=== PATIENT | male | born 1960 | race African-American/Black ===

== ENCOUNTER 2019-02-15 21:37 | Emergency (ER) | payer OTHER ==
[~2019-02-15] VITALS: Ht 190.5 cm; Wt 97.0 kg
[2019-02-15] MEDS ORDERED: ACETAMINOPHEN 500MG TABLET PO ONE (22:45)
[2019-02-15] MEDS ORDERED: KETOROLAC 60MG/2ML VIAL IM ONE (22:45)
[2019-02-16 00:51] VITALS: BP 180/91
== END 2019-02-16 00:51 | disposition home or self-care (01) ==
LOC: ER 21:37
DX: M54.5 Low back pain (principal); E11.9 Type 2 diabetes mellitus without complications; F12.10 Cannabis abuse, uncomplicated; Z87.828 Personal history of other (healed) physical injury and trauma; W01.0XXA Fall on same level from slipping, tripping and stumbling without subsequent striking against object, initial encounter; Y93.89 Activity, other specified; Y92.89 Other specified places as the place of occurrence of the external cause
CPT/HCPCS: 72100; 72220; 96372; 99283; J1885

== ENCOUNTER 2021-01-14 19:01 | Inpatient (IN) | payer MEDICAID, OTHER ==
[~2021-01-14] VITALS: Ht 190.5 cm; Wt 107.0 kg
[2021-01-14 19:56] LABS: CHLORIDE 111 mEq/L (98-107)
[2021-01-14 19:58] LABS: PROTHROMBIN TIME 10.7 sec (9.6-11.0)
[2021-01-14 19:59] LABS: ETHANOL BLOOD < 10 mg/dL
[2021-01-14 20:00] LABS: BASOPHILS % 0.3 % (0.0-2.0); EOSINOPHILS % 3.9 % (0.0-5.0); HEMATOCRIT. 38.7 % (42.0-52.0); HEMOGLOBIN. 12.8 g/dL (14.0-18.0); LYMPHOCYTES % 10.8 % (20.0-50.0); MEAN CORPUSCULAR HEMOGLOBIN 31.6 pg (28.0-32.0); MEAN CORPUSCULAR VOLUME 95.1 fL (80.0-94.0); MEAN PLATELET VOLUME 9.2 fl (7.4-10.4); MONOCYTES % 5.8 % (2.0-8.0); NEUTROPHILS % 79.2 % (40.0-76.0); PLATELET 183 x1000/uL (130-400); RED BLOOD CELL COUNT 4.06 mill/uL (4.7-6.1); RED CELL DISTRIBUTION WIDTH 13.3 % (11.6-14.6)
[2021-01-14 20:02] LABS: LDL CHOLESTEROL 56 mg/dL (5-100)
[2021-01-14 20:04] LABS: CREATINE KINASE 203 IU/L (39-308)
[2021-01-14] MEDS ORDERED: ASPIRIN 325MG EC TABLET PO ONE (20:30)
[2021-01-14] MEDS ORDERED: MORPHINE SULFATE 4 MG/ML CPJ (NOT FOR IM USE) IV ONE (20:30)
[2021-01-14] MEDS ORDERED: APIXABAN 5 MG TABLET PO SCH (22:00)
[2021-01-14] MEDS ORDERED: IOHEXOL-350 100 ML BOTTLE ONE (22:08)
[2021-01-15] MEDS ORDERED: TAMS-11 MT (00:04)
[2021-01-15] MEDS ORDERED: GABA-529 MT (00:04)
[2021-01-15] MEDS ORDERED: ASPI-1497 PO (00:04)
[2021-01-15] MEDS ORDERED: CLOP-31 MT (00:04)
[2021-01-15 00:33] VITALS: BP 154/75
[2021-01-15 04:00] VITALS: BP 149/80
[2021-01-15] MEDS ORDERED: DEXTROSE 50% WATER 50ML SYRINGE IV PRN ×2 (04:15→11:15)
[2021-01-15] MEDS: MORPHINE SULFATE 2 MG/ML CPJ (NOT FOR IM USE) IV PRN (04:39)
[2021-01-15] MEDS: BLOOD SUGAR DIAGNOSTIC STRIP TEST SCH ×4 (06:17→21:30)
[2021-01-15] MEDS: INSULIN LISPRO 100 UNITS/ML SUBCUT SCH ×4 (06:17→22:16)
[2021-01-15] MEDS ORDERED: LORAZEPAM 2MG/ML CPJ IV NR (07:00)
[2021-01-15 08:00] VITALS: BP 105/71
[2021-01-15] MEDS ORDERED: AMLODIPINE 10MG TABLET PO SCH (09:00)
[2021-01-15] MEDS: TAMSULOSIN HCL 0.4MG SR CAPSULE PO SCH (09:09)
[2021-01-15] MEDS: ASPIRIN 81MG TABLET PO SCH (09:09)
[2021-01-15] MEDS: CLOPIDOGREL 75MG TABLET PO SCH (09:09)
[2021-01-15] MEDS: GABAPENTIN 300MG CAPSULE PO SCH ×3 (09:09→21:58)
[2021-01-15] MEDS: INSULIN GLARGINE UD 100 UNITS/ML SYR SUBCUT SCH ×2 (10:03→22:02)
[2021-01-15] MEDS ORDERED: MAGNESIUM/ALUMINUM HYDROXIDE/SIMETHICONE 30ML UDC PO PRN (11:15)
[2021-01-15] MEDS ORDERED: ACETAMINOPHEN 325MG TABLET PO PRN (11:15)
[2021-01-15] MEDS ORDERED: DOCUSATE SODIUM 100MG CAPSULE PO PRN (11:15)
[2021-01-15] MEDS ORDERED: ONDANSETRON HCL 4MG/2ML INJ IV PRN (11:15)
[2021-01-15] MEDS ORDERED: IPRATROPIUM/ALBUTEROL 0.5-3(2.5)MG/3ML NEB HHN PRN (11:15)
[2021-01-15] MEDS ORDERED: BLOOD SUGAR DIAGNOSTIC STRIP TEST SCH (11:45)
[2021-01-15 11:55] VITALS: BP 135/79
[2021-01-15 12:43] LABS: HEMATOCRIT 37.1 % (42.0-52.0); HEMOGLOBIN 12.1 g/dL (14.0-18.0); MEAN CORPUSCULAR HEMOGLOBIN 31.2 pg (28.0-32.0); MEAN CORPUSCULAR VOLUME 95.7 fL (80.0-94.0); PLATELET 153 x1000/uL (130-400); RED BLOOD CELL COUNT 3.88 mill/uL (4.7-6.1); RED CELL DISTRIBUTION WIDTH 13.5 % (11.6-14.6)
[2021-01-15 12:54] LABS: CHLORIDE 114 mEq/L (98-107)
[2021-01-15 13:02] LABS: TOTAL IRON BINDING CAPACITY 258 ug/dL (250-450)
[2021-01-15] MEDS: SODIUM CHLORIDE 0.9% 1,000 ML IV SCH (13:09)
[2021-01-15 16:00] VITALS: BP 158/91
[2021-01-15] MEDS: ENOXAPARIN 100MG/ML SYR SUBCUT SCH (17:53)
[2021-01-15 20:00] VITALS: BP 142/87
[2021-01-15] MEDS: ATORVASTATIN CALCIUM 10MG TABLET PO SCH (21:58)
[2021-01-15] MEDS: METOPROLOL TARTRATE 25MG TABLET PO SCH (21:59)
[2021-01-15 22:55] LABS: CLARITY URINE CLOUDY (CLEAR); COLOR URINE RED (YELLOW); KETONES URINE NEGATIVE (NEGATIVE); LEUKOCYTE ESTERASE URINE 1+ (NEGATIVE); NITRITE URINE NEGATIVE (NEGATIVE); OCCULT BLOOD URINE 3+ (NEGATIVE); PH URINE 5.5 (4.5-8.0); PROTEIN URINE 3+ (NEGATIVE); SPECIFIC GRAVITY URINE 1.023 (1.005-1.030); UROBILINOGEN URINE 0.2 E.U./dL (0.2-1.0)
[2021-01-15 23:26] LABS: *BARBITURATES SCREEN URINE NEGATIVE (NEGATIVE)
[2021-01-15 23:27] LABS: *AMPHETAMINES SCREEN URINE NEGATIVE (NEGATIVE); *BENZODIAZEPINES SCREEN URINE NEGATIVE (NEGATIVE); *COCAINE SCREEN URINE NEGATIVE (NEGATIVE); CANNABINOID URINE SCREEN NEGATIVE (NEGATIVE); METHADONE URINE SCREEN NEGATIVE (NEGATIVE); OPIATES URINE SCREEN PRESUMTIVE POSITIVE (NEGATIVE); PHENCYCLIDINE URINE SCREEN NEGATIVE (NEGATIVE)
[2021-01-16] VITALS: BP 122/81
[2021-01-16 04:00] VITALS: BP 161/77
[2021-01-16 04:58] LABS: PHOSPHORUS 4.2 mg/dL (2.5-4.9)
[2021-01-16 05:01] LABS: CREATINE KINASE MB FRACTION 9.6 ng/mL (0.5-3.6)
[2021-01-16] MEDS: CLONIDINE 0.1MG TABLET PO PRN (05:11)
[2021-01-16] MEDS: ENOXAPARIN 100MG/ML SYR SUBCUT SCH (05:11)
[2021-01-16] MEDS: SODIUM CHLORIDE 0.9% 1,000 ML IV SCH ×2 (05:11→17:32)
[2021-01-16] MEDS: GABAPENTIN 300MG CAPSULE PO SCH ×3 (05:11→21:53)
[2021-01-16] MEDS: BLOOD SUGAR DIAGNOSTIC STRIP TEST SCH ×4 (05:56→21:54)
[2021-01-16] MEDS: MORPHINE SULFATE 2 MG/ML CPJ (NOT FOR IM USE) IV PRN ×2 (06:00→11:22)
[2021-01-16 06:13] LABS: BASOPHILS % 0.4 % (0.0-2.0); EOSINOPHILS % 5.1 % (0.0-5.0); HEMATOCRIT. 39.3 % (42.0-52.0); HEMOGLOBIN. 12.7 g/dL (14.0-18.0); LYMPHOCYTES % 17.4 % (20.0-50.0); MEAN CORPUSCULAR HEMOGLOBIN 30.9 pg (28.0-32.0); MEAN CORPUSCULAR VOLUME 95.4 fL (80.0-94.0); MEAN PLATELET VOLUME 9.1 fl (7.4-10.4); MONOCYTES % 5.4 % (2.0-8.0); NEUTROPHILS % 71.7 % (40.0-76.0); PLATELET 158 x1000/uL (130-400); RED BLOOD CELL COUNT 4.12 mill/uL (4.7-6.1); RED CELL DISTRIBUTION WIDTH 13.5 % (11.6-14.6)
[2021-01-16] MEDS: INSULIN LISPRO 100 UNITS/ML SUBCUT SCH ×4 (06:33→23:24)
[2021-01-16 08:00] VITALS: BP 131/80
[2021-01-16] MEDS ORDERED: AMLODIPINE 5MG TABLET PO SCH (09:00)
[2021-01-16] MEDS: METOPROLOL TARTRATE 25MG TABLET PO SCH (09:01)
[2021-01-16] MEDS: HYDROCODONE/ACETAMINOPHEN 5/325MG TABLET PO PRN ×2 (09:01→21:53)
[2021-01-16] MEDS: PANTOPRAZOLE SODIUM 40 MG/VIAL IV SCH (09:01)
[2021-01-16] MEDS: ASPIRIN 81MG TABLET PO SCH (09:02)
[2021-01-16] MEDS: CLOPIDOGREL 75MG TABLET PO SCH (09:02)
[2021-01-16] MEDS: TAMSULOSIN HCL 0.4MG SR CAPSULE PO SCH (09:02)
[2021-01-16] MEDS: INSULIN GLARGINE UD 100 UNITS/ML SYR SUBCUT SCH ×2 (10:34→23:23)
[2021-01-16 12:00] VITALS: BP 130/65
[2021-01-16 16:00] VITALS: BP 145/74
[2021-01-16] MEDS ORDERED: CEFTRIAXONE 1 G PREMIX 50 ML IV SCH (17:45)
[2021-01-16 20:00] VITALS: BP 131/79
[2021-01-16] MEDS ORDERED: CEFTRIAXONE 1,000 MG in DEXTROSE 5% WATER 50 ML IV SCH (20:00)
[2021-01-16] MEDS: AMLODIPINE 2.5MG TABLET PO SCH (21:00)
[2021-01-16] MEDS: ATORVASTATIN CALCIUM 10MG TABLET PO SCH (21:53)
[2021-01-16] MEDS: CARVEDILOL 6.25 MG TABLET PO SCH (21:54)
[2021-01-16] MEDS: CEFTRIAXONE 1,000 MG in DEXTROSE 5% WATER 50 ML IV SCH (23:25)
[2021-01-17] VITALS: BP 132/75
[2021-01-17] MEDS: SODIUM CHLORIDE 0.9% 1,000 ML IV SCH ×2 (03:30→16:50)
[2021-01-17 04:00] VITALS: BP 154/71
[2021-01-17 06:35] LABS: BASOPHILS % 0.4 % (0.0-2.0); EOSINOPHILS % 5.1 % (0.0-5.0); HEMATOCRIT. 36.6 % (42.0-52.0); HEMOGLOBIN. 12.1 g/dL (14.0-18.0); LYMPHOCYTES % 14.4 % (20.0-50.0); MEAN CORPUSCULAR VOLUME 96.4 fL (80.0-94.0); MEAN PLATELET VOLUME 8.8 fl (7.4-10.4); MONOCYTES % 5.8 % (2.0-8.0); NEUTROPHILS % 74.3 % (40.0-76.0); PLATELET 141 x1000/uL (130-400); RED BLOOD CELL COUNT 3.79 mill/uL (4.7-6.1); RED CELL DISTRIBUTION WIDTH 13.7 % (11.6-14.6)
[2021-01-17] MEDS: INSULIN LISPRO 100 UNITS/ML SUBCUT SCH ×4 (07:15→21:33)
[2021-01-17] MEDS: BLOOD SUGAR DIAGNOSTIC STRIP TEST SCH ×4 (07:38→21:00)
[2021-01-17] MEDS: GABAPENTIN 300MG CAPSULE PO SCH ×3 (07:38→21:45)
[2021-01-17 08:00] VITALS: BP 113/75
[2021-01-17] MEDS: ASPIRIN 81MG TABLET PO SCH (08:36)
[2021-01-17] MEDS: TAMSULOSIN HCL 0.4MG SR CAPSULE PO SCH (08:36)
[2021-01-17] MEDS: AMLODIPINE 2.5MG TABLET PO SCH ×2 (08:36→21:31)
[2021-01-17] MEDS: CARVEDILOL 6.25 MG TABLET PO SCH ×2 (08:36→21:32)
[2021-01-17] MEDS: PANTOPRAZOLE SODIUM 40 MG/VIAL IV SCH (08:36)
[2021-01-17] MEDS: CLOPIDOGREL 75MG TABLET PO SCH (08:36)
[2021-01-17] MEDS ORDERED: ENOXAPARIN 100MG/ML SYR SUBCUT SCH (09:00)
[2021-01-17] MEDS: INSULIN GLARGINE UD 100 UNITS/ML SYR SUBCUT SCH ×2 (10:28→21:32)
[2021-01-17] MEDS: HYDROCODONE/ACETAMINOPHEN 5/325MG TABLET PO PRN ×2 (11:24→17:31)
[2021-01-17 12:00] VITALS: BP 152/81
[2021-01-17 16:00] VITALS: BP 147/57
[2021-01-17] MEDS: APIXABAN 5 MG TABLET PO SCH (17:28)
[2021-01-17 20:00] VITALS: BP 139/73
[2021-01-17] MEDS: ATORVASTATIN CALCIUM 10MG TABLET PO SCH (21:30)
[2021-01-17] MEDS: CEFTRIAXONE 1,000 MG in DEXTROSE 5% WATER 50 ML IV SCH (21:33)
[2021-01-18] VITALS: BP 148/70
[2021-01-18] MEDS: MORPHINE SULFATE 2 MG/ML CPJ (NOT FOR IM USE) IV PRN (03:41)
[2021-01-18 04:00] VITALS: BP 177/89
[2021-01-18] MEDS: BLOOD SUGAR DIAGNOSTIC STRIP TEST SCH ×4 (05:54→20:44)
[2021-01-18] MEDS: SODIUM CHLORIDE 0.9% 1,000 ML IV SCH ×2 (06:10→22:12)
[2021-01-18] MEDS: GABAPENTIN 300MG CAPSULE PO SCH ×3 (06:15→22:10)
[2021-01-18 06:46] LABS: BASOPHILS % 0.7 % (0.0-2.0); EOSINOPHILS % 6.3 % (0.0-5.0); HEMATOCRIT. 36.5 % (42.0-52.0); HEMOGLOBIN. 12.4 g/dL (14.0-18.0); LYMPHOCYTES % 15.4 % (20.0-50.0); MEAN CORPUSCULAR HEMOGLOBIN 32.2 pg (28.0-32.0); MEAN CORPUSCULAR VOLUME 94.8 fL (80.0-94.0); MEAN PLATELET VOLUME 8.8 fl (7.4-10.4); MONOCYTES % 6.1 % (2.0-8.0); NEUTROPHILS % 71.5 % (40.0-76.0); PLATELET 145 x1000/uL (130-400); RED BLOOD CELL COUNT 3.85 mill/uL (4.7-6.1); RED CELL DISTRIBUTION WIDTH 13.2 % (11.6-14.6)
[2021-01-18] MEDS: INSULIN LISPRO 100 UNITS/ML SUBCUT SCH ×4 (07:15→21:00)
[2021-01-18 08:00] VITALS: BP 175/89
[2021-01-18] MEDS: ASPIRIN 81MG TABLET PO SCH (08:46)
[2021-01-18] MEDS: CLOPIDOGREL 75MG TABLET PO SCH (08:47)
[2021-01-18] MEDS: TAMSULOSIN HCL 0.4MG SR CAPSULE PO SCH (08:47)
[2021-01-18] MEDS: APIXABAN 5 MG TABLET PO SCH ×2 (08:47→17:44)
[2021-01-18] MEDS: CARVEDILOL 6.25 MG TABLET PO SCH ×2 (08:47→20:49)
[2021-01-18] MEDS: AMLODIPINE 2.5MG TABLET PO SCH ×2 (08:47→20:55)
[2021-01-18] MEDS: FAMOTIDINE 20MG/2ML VIAL IV SCH ×2 (09:02→20:49)
[2021-01-18] MEDS: INSULIN GLARGINE UD 100 UNITS/ML SYR SUBCUT SCH ×2 (10:29→22:11)
[2021-01-18 12:00] VITALS: BP 151/85
[2021-01-18 16:00] VITALS: BP 157/86
[2021-01-18] MEDS: HYDROCODONE/ACETAMINOPHEN 5/325MG TABLET PO PRN (18:31)
[2021-01-18 20:00] VITALS: BP 160/85
[2021-01-18] MEDS: ATORVASTATIN CALCIUM 10MG TABLET PO SCH (20:48)
[2021-01-18] MEDS: CEFTRIAXONE 1,000 MG in DEXTROSE 5% WATER 50 ML IV SCH (22:10)
[2021-01-19] VITALS: BP 150/73
[2021-01-19 04:00] VITALS: BP 170/91
[2021-01-19] MEDS: CLONIDINE 0.1MG TABLET PO PRN (04:16)
[2021-01-19] MEDS: SODIUM CHLORIDE 0.9% 1,000 ML IV SCH (05:59)
[2021-01-19] MEDS: GABAPENTIN 300MG CAPSULE PO SCH ×2 (06:10→14:26)
[2021-01-19 06:18] LABS: BASOPHILS % 0.7 % (0.0-2.0); EOSINOPHILS % 8.1 % (0.0-5.0); HEMATOCRIT. 36.3 % (42.0-52.0); HEMOGLOBIN. 12.4 g/dL (14.0-18.0); LYMPHOCYTES % 18.1 % (20.0-50.0); MEAN CORPUSCULAR HEMOGLOBIN 32.5 pg (28.0-32.0); MEAN CORPUSCULAR VOLUME 95.2 fL (80.0-94.0); MONOCYTES % 6.1 % (2.0-8.0); PLATELET 149 x1000/uL (130-400); RED BLOOD CELL COUNT 3.82 mill/uL (4.7-6.1); RED CELL DISTRIBUTION WIDTH 13.5 % (11.6-14.6)
[2021-01-19] MEDS: BLOOD SUGAR DIAGNOSTIC STRIP TEST SCH ×2 (06:19→11:45)
[2021-01-19] MEDS: INSULIN LISPRO 100 UNITS/ML SUBCUT SCH ×2 (07:15→12:15)
[2021-01-19 08:00] VITALS: BP 151/92
[2021-01-19] MEDS: AMLODIPINE 2.5MG TABLET PO SCH (08:15)
[2021-01-19] MEDS: CLOPIDOGREL 75MG TABLET PO SCH (08:16)
[2021-01-19] MEDS: TAMSULOSIN HCL 0.4MG SR CAPSULE PO SCH (08:16)
[2021-01-19] MEDS: CARVEDILOL 6.25 MG TABLET PO SCH (08:16)
[2021-01-19] MEDS: ASPIRIN 81MG TABLET PO SCH (08:16)
[2021-01-19] MEDS: APIXABAN 5 MG TABLET PO SCH (08:16)
[2021-01-19] MEDS: HYDROCODONE/ACETAMINOPHEN 5/325MG TABLET PO PRN (08:25)
[2021-01-19] MEDS: FAMOTIDINE 20MG/2ML VIAL IV SCH (09:18)
[2021-01-19] MEDS: INSULIN GLARGINE UD 100 UNITS/ML SYR SUBCUT SCH (10:37)
[2021-01-19 12:00] VITALS: BP 155/89
[2021-01-19] MEDS ORDERED: COR12 PO (12:05)
[2021-01-19] MEDS ORDERED: LANTUSUD SUBCUT (12:05)
[2021-01-19] MEDS ORDERED: ASPI-1497 PO (12:05)
[2021-01-19] MEDS ORDERED: INSLIS SUBCUT (12:05)
[2021-01-19] MEDS ORDERED: AMLO5TAB88 PO (12:05)
[2021-01-19] MEDS ORDERED: TAMS-11 MT (12:05)
[2021-01-19] MEDS ORDERED: ATOR10TA PO (12:05)
[2021-01-19] MEDS ORDERED: CLOP-31 MT (12:05)
[2021-01-19] MEDS ORDERED: APIX5TAB PO (12:05)
[2021-01-19] MEDS ORDERED: ASPI-1160 PO (12:05)
[2021-01-19] MEDS ORDERED: CARVEDILOL 12.5MG TABLET PO SCH (21:00)
[2021-01-19] MEDS ORDERED: AMLODIPINE 5MG TABLET PO SCH (21:00)
[2021-01-19] MEDS ORDERED: FAMOTIDINE 20MG TABLET PO SCH (21:00)
== END 2021-01-19 15:40 | disposition home health service (06) | DRG 45 ==
LOC: ER 19:01 → 5WST 21:37 → EDBEDREQ 21:41 → EDBEDREQSVC 21:41 → EDBEDREQTM 21:41 → ENRESERV 23:00
PROVIDERS: ADMIT Internal Medicine; ATTEND Internal Medicine
PROC: 4A10X4Z Monitoring of Central Nervous Electrical Activity, External Approach (ICD-10-PCS; principal; 2021-01-14)
DX: I63.9 Cerebral infarction, unspecified (principal); I26.99 Other pulmonary embolism without acute cor pulmonale; I50.33 Acute on chronic diastolic (congestive) heart failure; E44.0 Moderate protein-calorie malnutrition; N17.9 Acute kidney failure, unspecified; I82.412 Acute embolism and thrombosis of left femoral vein; I48.91 Unspecified atrial fibrillation; R53.1 Weakness; I63.81 Other cerebral infarction due to occlusion or stenosis of small artery; I11.0 Hypertensive heart disease with heart failure; N40.0 Benign prostatic hyperplasia without lower urinary tract symptoms; E11.65 Type 2 diabetes mellitus with hyperglycemia; E78.5 Hyperlipidemia, unspecified; I25.10 Atherosclerotic heart disease of native coronary artery without angina pectoris; B96.1 Klebsiella pneumoniae [K. pneumoniae] as the cause of diseases classified elsewhere; I42.9 Cardiomyopathy, unspecified; M54.2 Cervicalgia; I50.9 Heart failure, unspecified; R31.9 Hematuria, unspecified; N39.0 Urinary tract infection, site not specified; Z79.02 Long term (current) use of antithrombotics/antiplatelets; Z79.82 Long term (current) use of aspirin; Z82.49 Family history of ischemic heart disease and other diseases of the circulatory system; Z83.3 Family history of diabetes mellitus; Z86.73 Personal history of transient ischemic attack (TIA), and cerebral infarction without residual deficits; Z95.5 Presence of coronary angioplasty implant and graft; Z79.899 Other long term (current) drug therapy
CPT/HCPCS: 36415; 70496; 70498; 70551; 71045; 76770; 80048; 80053; 80061; 80076; 80305; 80320; 81003; 82550; 82553; 82962; 83036; 83540; 83550; 83605; 83721; 83735; 84100; 84145; 84443; 84484; 85025; 85027; 87077; 87186; 93005; 93306; 93880; 93970; 95816; 97116; 97162; 97166; 99291; C9113; J0696; J1650; J1815; J2060; J2270; J3490; J7030; J7060; Q9967; G0480

== ENCOUNTER 2021-11-01 18:44 | Emergency (ER) | payer MEDICAID, OTHER ==
[~2021-11-01] VITALS: Ht 190.5 cm; Wt 113.0 kg
[~2021-11-01 18:44] MED LIST: AMLO5TAB88 PO; APIX5TAB PO; ASPI-1160 PO; ASPI-1497 PO; ATOR10TA PO; CLOP-31 MT; COR12 PO; GABA-529 MT; INSLIS SUBCUT; LANTUSUD SUBCUT; TAMS-11 MT
[2021-11-01] MEDS ORDERED: THROMBIN (BOVINE) 5000 UNITS/VIAL TOP ONE (19:15)
[2021-11-01] MEDS ORDERED: TRANEXAMIC ACID 1,000 MG/10 ML TP ONE (19:45)
[2021-11-01 20:06] LABS: HEMATOCRIT 32.2 % (42.0-52.0); HEMOGLOBIN 10.5 g/dL (14.0-18.0); MEAN CORPUSCULAR VOLUME 95.1 fL (80.0-94.0); PLATELET 209 x1000/uL (130-400); RED BLOOD CELL COUNT 3.38 mill/uL (4.7-6.1); RED CELL DISTRIBUTION WIDTH 13.4 % (11.6-14.6)
[2021-11-01 20:27] VITALS: BP 129/62
[2021-11-01] MEDS ORDERED: BACITRACIN ZINC OINT UDPKT TOP ONE (22:30)
[2021-11-01] MEDS ORDERED: LIDOCAINE HCL/EPINEPHRINE 1%-EPI 1:100,000 20 ML VIAL INFIL ONE (22:30)
== END 2021-11-01 22:34 | disposition home or self-care (01) ==
LOC: ER 18:44
DX: L76.21 Postprocedural hemorrhage of skin and subcutaneous tissue following a dermatologic procedure (principal); Z86.718 Personal history of other venous thrombosis and embolism; Z79.01 Long term (current) use of anticoagulants; I10 Essential (primary) hypertension; I11.9 Hypertensive heart disease without heart failure; E11.9 Type 2 diabetes mellitus without complications; Z86.73 Personal history of transient ischemic attack (TIA), and cerebral infarction without residual deficits; I25.10 Atherosclerotic heart disease of native coronary artery without angina pectoris; Z98.61 Coronary angioplasty status
CPT/HCPCS: 12002; 36415; 85027; 99283; J3490; Z7610

== ENCOUNTER 2022-07-24 10:45 | Inpatient (IN) | payer MEDICAID, OTHER ==
[~2022-07-24] VITALS: Ht 190.5 cm; Wt 104.3 kg
[~2022-07-24 10:45] MED LIST changes: -AMLO5TAB88 PO; -ASPI-1497 PO; -ATOR10TA PO; -CLOP-31 MT; -COR12 PO; +COR6 PO; +GABA-290 MT; -GABA-529 MT; +HYDR-4001 MT; +HYDR-4135 PO; -INSLIS SUBCUT; +ISOS1TAB2 MT; -LANTUSUD SUBCUT; +LIP40 PO; +TOPUD PO
[2022-07-24] MEDS ORDERED: MORPHINE SULFATE 4 MG/ML CPJ (NOT FOR IM USE) IV NR (11:15)
[2022-07-24 11:34] LABS: BASOPHILS % 0.8 % (0.0-2.0); EOSINOPHILS % 4.2 % (0.0-5.0); HEMATOCRIT. 34.6 % (42.0-52.0); HEMOGLOBIN. 11.5 g/dL (14.0-18.0); LYMPHOCYTES % 13.5 % (20.0-50.0); MEAN CORPUSCULAR HEMOGLOBIN 30.6 pg (28.0-32.0); MEAN CORPUSCULAR VOLUME 91.7 fL (80.0-94.0); MEAN PLATELET VOLUME 9.2 fl (7.4-10.4); MONOCYTES % 4.6 % (2.0-8.0); NEUTROPHILS % 76.9 % (40.0-76.0); PLATELET 165 x1000/uL (130-400); RED BLOOD CELL COUNT 3.77 mill/uL (4.7-6.1); RED CELL DISTRIBUTION WIDTH 13.5 % (11.6-14.6)
[2022-07-24 11:40] LABS: CHLORIDE 107 mEq/L (98-107)
[2022-07-24] MEDS ORDERED: NITROGLYCERIN 0.4MG TABLET SL SL ONE (11:45)
[2022-07-24 11:50] LABS: ETHANOL BLOOD < 10 mg/dL
[2022-07-24] MEDS ORDERED: NITROGLYCERIN OINT 1GM/INCH UDPKT TD NR (13:45)
[2022-07-24] MEDS ORDERED: FUROSEMIDE 40MG/4ML VIAL IVP NR (13:45)
[2022-07-24] MEDS ORDERED: CLONIDINE 0.1MG TABLET PO PRN (16:15)
[2022-07-24] MEDS ORDERED: CEFTRIAXONE 1 G PREMIX 50 ML IV SCH (16:15)
[2022-07-24] MEDS ORDERED: DIPHENHYDRAMINE 50MG/ML VIAL IV PRN (16:15)
[2022-07-24] MEDS ORDERED: IPRATROPIUM/ALBUTEROL 0.5-3(2.5)MG/3ML NEB HHN PRN (16:15)
[2022-07-24] MEDS ORDERED: AZITHROMYCIN 500 MG in DEXT 5% WATER 250 ML IV SCH (16:15)
[2022-07-24] MEDS ORDERED: ONDANSETRON HCL 4MG/2ML INJ IV PRN (16:15)
[2022-07-24] MEDS ORDERED: ACETAMINOPHEN 325MG TABLET PO PRN (16:15)
[2022-07-24 17:08] LABS: *AMPHETAMINES SCREEN URINE NEGATIVE (NEGATIVE); *BARBITURATES SCREEN URINE NEGATIVE (NEGATIVE); *BENZODIAZEPINES SCREEN URINE NEGATIVE (NEGATIVE); *COCAINE SCREEN URINE NEGATIVE (NEGATIVE); CANNABINOID URINE SCREEN PRESUMTIVE POSITIVE (NEGATIVE); METHADONE URINE SCREEN NEGATIVE (NEGATIVE); OPIATES URINE SCREEN PRESUMTIVE POSITIVE (NEGATIVE); PHENCYCLIDINE URINE SCREEN NEGATIVE (NEGATIVE)
[2022-07-24 18:30] VITALS: BP 146/75
[2022-07-24] MEDS: MORPHINE SULFATE 2 MG/ML CPJ (NOT FOR IM USE) IV PRN (18:43)
[2022-07-24 20:00] VITALS: BP 136/76
[2022-07-25] VITALS: BP 130/73
[2022-07-25 04:00] VITALS: BP 127/74
[2022-07-25] MEDS: MORPHINE SULFATE 2 MG/ML CPJ (NOT FOR IM USE) IV PRN ×2 (06:46→21:49)
[2022-07-25 07:08] LABS: BASOPHILS % 0.7 % (0.0-2.0); EOSINOPHILS % 4.2 % (0.0-5.0); HEMATOCRIT. 35.8 % (42.0-52.0); HEMOGLOBIN. 11.9 g/dL (14.0-18.0); LYMPHOCYTES % 17.1 % (20.0-50.0); MEAN CORPUSCULAR HEMOGLOBIN 30.3 pg (28.0-32.0); MEAN PLATELET VOLUME 9.4 fl (7.4-10.4); MONOCYTES % 7.3 % (2.0-8.0); NEUTROPHILS % 70.7 % (40.0-76.0); PLATELET 150 x1000/uL (130-400); RED BLOOD CELL COUNT 3.93 mill/uL (4.7-6.1); RED CELL DISTRIBUTION WIDTH 13.7 % (11.6-14.6)
[2022-07-25 07:36] LABS: CHLORIDE 104 mEq/L (98-107)
[2022-07-25 08:00] VITALS: BP 155/67
[2022-07-25] MEDS ORDERED: FUROSEMIDE 40MG/4ML VIAL IV SCH (09:00)
[2022-07-25 12:00] VITALS: BP 141/70
[2022-07-25] MEDS: GABAPENTIN 300MG CAPSULE PO SCH ×2 (13:15→21:45)
[2022-07-25] MEDS: ASPIRIN 81MG TABLET PO SCH (13:15)
[2022-07-25] MEDS: TAMSULOSIN HCL 0.4MG SR CAPSULE PO SCH (13:16)
[2022-07-25] MEDS: APIXABAN 5 MG TABLET PO SCH ×2 (13:16→21:45)
[2022-07-25 14:49] LABS: CLARITY URINE CLEAR (CLEAR); COLOR URINE YELLOW (YELLOW); KETONES URINE NEGATIVE (NEGATIVE); LEUKOCYTE ESTERASE URINE TRACE (NEGATIVE); NITRITE URINE NEGATIVE (NEGATIVE); OCCULT BLOOD URINE NEGATIVE (NEGATIVE); PH URINE 6.5 (4.5-8.0); PROTEIN URINE 2+ (NEGATIVE); SPECIFIC GRAVITY URINE 1.011 (1.005-1.030); UROBILINOGEN URINE 0.2 E.U./dL (0.2-1.0)
[2022-07-25 16:00] VITALS: BP 130/62
[2022-07-25] MEDS ORDERED: CEFTRIAXONE 1,000 MG in DEXTROSE 5% WATER 50 ML IV SCH (16:00)
[2022-07-25] MEDS ORDERED: NALOXONE HCL 0.4MG/ML VIAL IV PRN (17:45)
[2022-07-25] MEDS ORDERED: AZITHROMYCIN 500MG in DEXTROSE 5% WATER 250ML IV SCH (18:00)
[2022-07-25 20:00] VITALS: BP 144/75
[2022-07-25] MEDS ORDERED: ATORVASTATIN CALCIUM 40MG TABLET PO SCH (21:00)
[2022-07-25] MEDS: CARVEDILOL 6.25 MG TABLET PO SCH (21:45)
[2022-07-26] VITALS: BP 153/84
[2022-07-26 02:00] VITALS: BP 146/69
[2022-07-26 04:00] VITALS: BP 146/69
[2022-07-26] MEDS: GABAPENTIN 300MG CAPSULE PO SCH (06:52)
[2022-07-26] MEDS ORDERED: FUROSEMIDE 40MG/4ML VIAL IV SCH (07:15)
[2022-07-26 07:24] LABS: EOSINOPHILS % 3.6 % (0.0-5.0); HEMATOCRIT. 36.4 % (42.0-52.0); HEMOGLOBIN. 12.2 g/dL (14.0-18.0); LYMPHOCYTES % 17.2 % (20.0-50.0); MEAN CORPUSCULAR HEMOGLOBIN 30.2 pg (28.0-32.0); MEAN CORPUSCULAR VOLUME 90.3 fL (80.0-94.0); MEAN PLATELET VOLUME 9.9 fl (7.4-10.4); NEUTROPHILS % 71.2 % (40.0-76.0); PLATELET 158 x1000/uL (130-400); RED BLOOD CELL COUNT 4.03 mill/uL (4.7-6.1); RED CELL DISTRIBUTION WIDTH 13.3 % (11.6-14.6)
[2022-07-26 08:00] VITALS: BP 149/72
[2022-07-26] MEDS: TAMSULOSIN HCL 0.4MG SR CAPSULE PO SCH (08:52)
[2022-07-26] MEDS: ASPIRIN 81MG TABLET PO SCH (08:52)
[2022-07-26] MEDS: APIXABAN 5 MG TABLET PO SCH (08:52)
[2022-07-26] MEDS: CARVEDILOL 6.25 MG TABLET PO SCH (08:53)
[2022-07-26] MEDS: MORPHINE SULFATE 2 MG/ML CPJ (NOT FOR IM USE) IV PRN (08:54)
[2022-07-26] MEDS ORDERED: FURO40TA5 MT (09:21)
[2022-07-26 12:00] VITALS: BP 142/77
[2022-07-26 14:21] VITALS: BP 142/77
== END 2022-07-26 14:55 | disposition home or self-care (01) | DRG 194 ==
LOC: ER 10:45 → EDBEDREQTM 15:27 → EDBEDREQ 15:27 → ENRESERV 15:50 → 3WST 17:55
PROVIDERS: ADMIT Internal Medicine; ATTEND Internal Medicine
DX: I13.0 Hypertensive heart and chronic kidney disease with heart failure and stage 1 through stage 4 chronic kidney disease, or unspecified chronic kidney disease (principal); J96.90 Respiratory failure, unspecified, unspecified whether with hypoxia or hypercapnia; I48.0 Paroxysmal atrial fibrillation; I50.23 Acute on chronic systolic (congestive) heart failure; I16.0 Hypertensive urgency; D63.1 Anemia in chronic kidney disease; I25.10 Atherosclerotic heart disease of native coronary artery without angina pectoris; I44.7 Left bundle-branch block, unspecified; N18.9 Chronic kidney disease, unspecified; E78.00 Pure hypercholesterolemia, unspecified; Z95.5 Presence of coronary angioplasty implant and graft; Z91.199 Patient's noncompliance with other medical treatment and regimen due to unspecified reason; Z86.73 Personal history of transient ischemic attack (TIA), and cerebral infarction without residual deficits; I25.2 Old myocardial infarction; Z86.718 Personal history of other venous thrombosis and embolism; Z86.711 Personal history of pulmonary embolism
CPT/HCPCS: 36415; 71045; 80048; 80053; 80305; 80320; 81003; 82962; 83880; 84484; 85025; 93005; 93970; 99285; J0456; J0696; J1940; J2270; J7060; G0480

== ENCOUNTER 2025-06-03 17:59 | Inpatient (IN) | payer MEDICAID ==
[~2025-06-03] VITALS: Ht 190.5 cm; Wt 106.6 kg
[~2025-06-03 17:59] MED LIST changes: -APIX5TAB PO; -ASPI-1160 PO; +ATOR40TA70 PO; +CLOP75TA33 PO; -COR6 PO; +FOLI0.8T53 MT; -GABA-290 MT; +GABA800T97 MT; -HYDR-4001 MT; +HYDR-4009 MT; -HYDR-4135 PO; +HYDR50TA39 PO; -ISOS1TAB2 MT; +ISOS60TA76 MT; +LEVO250T74 MT; -LIP40 PO; +LOSA50TA41 PO; +RIME75TA PO; -TAMS-11 MT; +TAMS-54 MT; -TOPUD PO
[2025-06-03 18:10] VITALS: O2SAT 95
[2025-06-03 19:43] LABS: BASOPHILS % 0.8 % (0.0-2.0); EOSINOPHILS % 2.1 % (0.0-5.0); HEMATOCRIT. 36.8 % (42.0-52.0); HEMOGLOBIN. 12.4 g/dL (14.0-18.0); LYMPHOCYTES % 13.7 % (20.0-50.0); MEAN PLATELET VOLUME 8.8 fl (7.4-10.4); MONOCYTES % 7.9 % (2.0-8.0); NEUTROPHILS % 75.5 % (40.0-76.0); PLATELET 177 x1000/uL (130-400); RED BLOOD CELL COUNT 3.75 mill/uL (4.7-6.1); RED CELL DISTRIBUTION WIDTH 13.4 % (11.6-14.6)
[2025-06-03 19:55] LABS: TROPONIN I HIGH SENSITIVITY 50 ng/L (3.0-53); UREA NITROGEN BLOOD 19 mg/dL (9-23)
[2025-06-03 19:56] LABS: ASPARTATE AMINOTRANSFERASE 14 IU/L (<34)
[2025-06-03 19:57] LABS: BILIRUBIN DIRECT 0.1 mg/dL (<=3.0); BILIRUBIN TOTAL 0.4 mg/dL (0.1-1.0); PROTEIN TOTAL 7.0 g/dL (6.0-8.3)
[2025-06-03 20:04] LABS: CREATININE 5.4 mg/dL (0.6-1.3)
[2025-06-03] MEDS: MORPHINE SULFATE 4 MG/ML INJ (FOR IV/IM USE) IV ONE ×2 (20:45→21:30)
[2025-06-03] MEDS: ACETAMINOPHEN 325MG TABLET PO ONE (21:29)
[2025-06-03 23:26] VITALS: BP 134/69; PULSE 74; RESP 18; TEMP 36.418
[2025-06-04] VITALS: BP 127/65; PULSE 70; RESP 18; TEMP 36.7; O2SAT 98
[2025-06-04] MEDS ORDERED: ACETAMINOPHEN 325MG TABLET PO PRN (00:45)
[2025-06-04] MEDS ORDERED: DEXTROSE 50% WATER 50ML SYRINGE IV PRN (00:45)
[2025-06-04 01:59] LABS: BASOPHILS % 0.9 % (0.0-2.0); EOSINOPHILS % 3.6 % (0.0-5.0); HEMATOCRIT. 35.5 % (42.0-52.0); HEMOGLOBIN. 11.8 g/dL (14.0-18.0); LYMPHOCYTES % 20.6 % (20.0-50.0); MEAN PLATELET VOLUME 8.5 fl (7.4-10.4); MONOCYTES % 8.5 % (2.0-8.0); NEUTROPHILS % 66.4 % (40.0-76.0); PLATELET 163 x1000/uL (130-400); RED BLOOD CELL COUNT 3.60 mill/uL (4.7-6.1); RED CELL DISTRIBUTION WIDTH 13.0 % (11.6-14.6)
[2025-06-04] MEDS: HYDROCODONE/ACETAMINOPHEN 5/325MG TABLET PO PRN (02:12)
[2025-06-04 02:14] LABS: TRIGLYCERIDE 163 mg/dL (0-150); UREA NITROGEN BLOOD 18 mg/dL (9-23)
[2025-06-04 02:15] LABS: LDL CHOLESTEROL 67 mg/dL (5-100)
[2025-06-04 02:16] LABS: ASPARTATE AMINOTRANSFERASE 10 IU/L (<34); BILIRUBIN TOTAL 0.3 mg/dL (0.1-1.0); PHOSPHORUS 4.5 mg/dL (2.5-4.9); PROTEIN TOTAL 6.4 g/dL (6.0-8.3)
[2025-06-04 02:32] LABS: CREATININE 6.0 mg/dL (0.6-1.3)
[2025-06-04 04:00] VITALS: BP 121/61; PULSE 69; RESP 18; TEMP 36.5; O2SAT 100
[2025-06-04] MEDS: BLOOD SUGAR DIAGNOSTIC STRIP TEST SCH (07:01)
[2025-06-04] MEDS: INSULIN LISPRO 100 UNITS/ML SUBCUT SCH (07:10)
[2025-06-04 08:00] VITALS: BP 120/54; PULSE 70; RESP 20; TEMP 36.3; O2SAT 97
[2025-06-04] MEDS: ASPIRIN 81MG TABLET PO SCH (08:39)
[2025-06-04] MEDS: SEVELAMER CARBONATE 800 MG TABLET PO SCH (08:40)
[2025-06-04] MEDS: FOLIC ACID/VITAMIN B COMP W-C TABLET PO SCH (08:40)
[2025-06-04] MEDS: ATORVASTATIN CALCIUM 40MG TABLET PO SCH (08:40)
[2025-06-04] MEDS: METOPROLOL TARTRATE 50MG TABLET PO SCH (08:41)
[2025-06-04] MEDS: LOSARTAN 50 MG TABLET PO SCH (08:41)
[2025-06-04 12:00] VITALS: BP 93/48; PULSE 63; RESP 20; TEMP 36.4; O2SAT 96
[2025-06-04] MEDS: PIPERACILLIN/TAZO 3.375G/50ML 50 ML IV SCH (13:22)
[2025-06-04 16:00] VITALS: BP 104/50; PULSE 71; RESP 20; TEMP 36.3; O2SAT 97
[2025-06-04] MEDS: ENOXAPARIN 30MG/0.3ML SYR SUBCUT SCH (17:59)
[2025-06-04 20:00] VITALS: BP 116/58; PULSE 59; RESP 18; TEMP 36.3; O2SAT 100
[2025-06-05] VITALS (9 sets, daily range): BP systolic 95–140; BP diastolic 52–75; PULSE 56–80; RESP 16–18; TEMP 36.3–36.6696; O2SAT 98–100
[2025-06-05 06:09] LABS: BASOPHILS % 0.7 % (0.0-2.0); EOSINOPHILS % 4.2 % (0.0-5.0); HEMATOCRIT. 37.3 % (42.0-52.0); HEMOGLOBIN. 12.3 g/dL (14.0-18.0); LYMPHOCYTES % 18.6 % (20.0-50.0); MEAN PLATELET VOLUME 8.3 fl (7.4-10.4); MONOCYTES % 7.5 % (2.0-8.0); NEUTROPHILS % 69.0 % (40.0-76.0); PLATELET 175 x1000/uL (130-400); RED BLOOD CELL COUNT 3.80 mill/uL (4.7-6.1); RED CELL DISTRIBUTION WIDTH 13.3 % (11.6-14.6)
[2025-06-05 06:30] LABS: UREA NITROGEN BLOOD 24 mg/dL (9-23)
[2025-06-05 06:32] LABS: PHOSPHORUS 5.6 mg/dL (2.5-4.9)
[2025-06-05 06:42] LABS: CLARITY URINE TURBID (CLEAR); COLOR URINE YELLOW (YELLOW); GLUCOSE URINE NEGATIVE (NEGATIVE); KETONES URINE NEGATIVE (NEGATIVE); LEUKOCYTE ESTERASE URINE 3+ (NEGATIVE); NITRITE URINE NEGATIVE (NEGATIVE); OCCULT BLOOD URINE 2+ (NEGATIVE); PH URINE 8.0 (4.5-8.0); PROTEIN URINE 2+ (NEGATIVE); SPECIFIC GRAVITY URINE 1.013 (1.005-1.030); UROBILINOGEN URINE 0.2 E.U./dL (0.2-1.0)
[2025-06-05 06:45] LABS: CREATININE 7.5 mg/dL (0.6-1.3)
[2025-06-05 07:11] LABS: WBC URINE TNTC /hpf (0-2)
[2025-06-05 07:12] LABS: BACTERIA URINE 4+; SQUAMOUS EPITHELIAL CELL URINE FEW /lpf (RARE/1+)
[2025-06-05] MEDS ORDERED: LEVO-65 MT (14:04)
== END 2025-06-05 15:27 | disposition home or self-care (01) ==
LOC: ER 17:59 → 7EST 21:03 → EDBEDREQ 21:19 → EDBEDREQTM 21:19
PROVIDERS: ADMIT Internal Medicine; ATTEND Internal Medicine
PROC: 5A1D70Z Performance of Urinary Filtration, Intermittent, Less than 6 Hours Per Day (ICD-10-PCS; principal; 2025-06-05)
DX: K81.9 Cholecystitis, unspecified (principal); I13.2 Hypertensive heart and chronic kidney disease with heart failure and with stage 5 chronic kidney disease, or end stage renal disease; N18.6 End stage renal disease; I50.9 Heart failure, unspecified; E11.22 Type 2 diabetes mellitus with diabetic chronic kidney disease; D64.9 Anemia, unspecified; E78.5 Hyperlipidemia, unspecified; N39.0 Urinary tract infection, site not specified; I25.10 Atherosclerotic heart disease of native coronary artery without angina pectoris; M48.02 Spinal stenosis, cervical region; Z99.2 Dependence on renal dialysis; Z95.5 Presence of coronary angioplasty implant and graft; Z86.73 Personal history of transient ischemic attack (TIA), and cerebral infarction without residual deficits; Z86.718 Personal history of other venous thrombosis and embolism; Z82.49 Family history of ischemic heart disease and other diseases of the circulatory system
CPT/HCPCS: 36415; 74176; 76705; 80048; 80053; 80061; 80076; 81003; 82962; 83036; 83605; 83735; 83880; 84100; 84484; 85025; 87077; 87186; 90935; 99285; A4606; J1650; J1815; J2270; J2543